=== PATIENT | male | born 1950 | race Caucasian/White ===

== ENCOUNTER → 2016-09-20 | Outpatient (CLI) | payer MEDICARE, BC ==
[~2016-09-20] MED LIST: ATEN25TA PO; ENAL1TAB5 PO; HYDR12.53 PO; IOHEXOL 300 MG/ML 75 ML VIAL IV ONE
--- NOTE | 2016-09-20 09:03 | RAD ---
Indication: Transient ischemic attacks and hypertension. Grayscale, color-flow and duplex Doppler evaluation of bilateral carotid systems was performed. No significant plaquing is identified in either carotid system. The velocities are normal bilaterally. No velocity elevation or stenosis is seen. Both vertebral arteries show antegrade flow. Peak CCA velocity on the right is 92 cm/s and on the left 92 cm/s. Peak ICA velocity on the right is 85 cm/s and on the left 79 cm/s. The ICA to CCA ratio on the right is 0.9 and on the left 0.9. Impression: No evidence of a hemodynamically significant stenosis.
--- NOTE | 2016-09-20 09:38 | RAD ---
Clinical indications: TIA. Hypertension. Technique: Noncontrast axial cross sectional scanning of the head was performed. After IV infusion of 70 cc of Omnipaque 300, repeat axial cross-sectional scanning of the head was performed. PQRS Compliance Statement: One or more of the following individualized dose reduction techniques were utilized for this examination: 1. Automated exposure control 2. Adjustment of the mA and/or kV according to patient size 3. Use of iterative reconstruction technique Findings: No acute intracranial hemorrhage or midline shift or mass-effect or hydrocephalus or extra-axial fluid collection is seen. There are periventricular white matter hypodensities consistent with chronic small vessel ischemic disease in this age group. These areas do not enhance. No sulci effacement is seen. No intracranial contrast enhancing lesion is seen. No opacification of the mastoid sinuses or the middle ear cavities is seen. There is complete opacification of the sphenoid sinuses bilaterally. There is mild mucosal thickening of the left anterior ethmoid sinus. There is severe mucosal thickening of the upper left maxillary sinus which measures 13 mm in thickness. The upper right maxillary sinus appears clear. The upper medial wall of both maxillary sinuses appears to be surgically absent. The maxillary sinuses are not completely seen in this study. Impression: Ijar-jv-kpyirjyy chronic small vessel ischemic disease of the deep white matter of the cerebral hemispheres bilaterally. No acute intracranial hemorrhage. No intracranial contrast enhancing lesion is seen. Bilateral sphenoid sinusitis and left maxillary sinusitis.
== END | disposition home or self-care (01) ==
LOC: CT 08:00
PROVIDERS: ATTEND Family Medicine
DX: G45.9 Transient cerebral ischemic attack, unspecified (principal); J45.909 Unspecified asthma, uncomplicated; Z86.79 Personal history of other diseases of the circulatory system; I10 Essential (primary) hypertension; J32.3 Chronic sphenoidal sinusitis; J32.0 Chronic maxillary sinusitis
CPT/HCPCS: 70470; 93880; Q9967

== ENCOUNTER → 2016-10-18 | Outpatient (CLI) | payer MEDICARE, BC ==
[~2016-10-18] MED LIST changes: -IOHEXOL 300 MG/ML 75 ML VIAL IV ONE
[2016-10-18 09:22] LABS: CHOLESTEROL/HDL RATIO 4.3
--- NOTE | 2016-10-18 11:22 | CARD ---
APPROVED REPORT EXAM: Two-dimensional and M-mode echocardiogram with Doppler and color Doppler. Other Information Quality : Good INDICATION CVA/TIA Echo Enhancing Agent Agent/Amount Used: Agitated Saline 8mL 2D DIMENSIONS Left Atrium(2D)4.1 (1.6-4.0cm)IVSd1.3 (0.7-1.1cm) Aortic Root(2D)3.2 (2.0-3.7cm)LVDd5.3 (3.9-5.9cm) LVOT Diameter2.2 (1.8-2.4cm)PWd1.3 (0.7-1.1cm) LVDs3.3 (2.5-4.0cm)FS (%) 30.0 % SV91.0 mlLVEF(%)60.0 (>50%) Aortic Valve AoV Peak Pepito.117.0cm/sAoV VTI26.0cm AO Peak GR.5.5mmHgLVOT Peak Pepito.110.9cm/s AO Mean GR.3mmHgAVA (VMAX)3.57cm2 LUX (VTI)3.50cm2 Mitral Valve MV E Lzputhwl949.8cm/sMV DECEL DADN506ek MV A Gvntabmh35.1cm/sE/A Ratio1.3 Tricuspid Valve TR P. Pdpjgzur933op/sRAP BNUNHQZQ2yrMz TR Peak Gr.44ikQfALUB64czGj Pulmonary Vein S1 Dzdznzbu53.0cm/sD2 Jhrfhtnt78.6cm/s PVa ommxpmyb060wmdc LEFT VENTRICLE The left ventricle is normal size. There is normal left ventricular wall thickness. The left ventricu lar systolic function is normal and the ejection fraction is within normal range. The Ejection Fracti on is 55-60%. There is normal LV segmental wall motion. Transmitral Doppler flow pattern is Grade I-a bnormal relaxation pattern. RIGHT VENTRICLE The right ventricle is normal size. The right ventricular systolic function is normal. ATRIA The left atrium is mildly dilated. The right atrium size is normal. The interatrial septum is intact with no evidence for an atrial septal defect or patent foramen ovale as noted on 2-D or Doppler imagi ng. Injection of agitated saline documented no interatrial shunt. AORTIC VALVE The aortic not well visualized. Cannot rule out bicuspid valve. Doppler and Color Flow revealed mild aortic regurgitation. There is no significant aortic valvular stenosis. MITRAL VALVE The mitral valve is sclerotic, mildly myxomatous. A mild posterior leaflet mitral valve prolapse is p resent. There is no mitral valve stenosis. Doppler and Color-flow revealed mild mitral regurgitation. TRICUSPID VALVE The tricuspid valve is normal in structure and function. Doppler and Color Flow revealed trace tricus pid regurgitation. The PA pressure was estimated at 35 mmHg. There is no tricuspid valve stenosis. PULMONIC VALVE Doppler and Color Flow revealed mild pulmonic valvular regurgitation. There is no pulmonic valvular s tenosis. GREAT VESSELS The aortic root is normal in size. The ascending aorta is mildly dilated at 3.8 cm. The IVC is normal in size and collapses >50% with inspiration. PERICARDIAL EFFUSION There is no evidence of significant pericardial effusion. Critical Notification Critical Value: No <Conclusion> The left ventricular systolic function is normal and the ejection fraction is within normal range. Th e Ejection Fraction is 55-60%. There is normal LV segmental wall motion. The interatrial septum is intact with no evidence for an atrial septal defect or patent foramen ovale as noted on 2-D or Doppler imaging. Injection of agitated saline documented no interatrial shunt. The aortic not well visualized. Cannot rule out bicuspid valve. Doppler and Color Flow revealed mild aortic regurgitation. The ascending aorta is mildly dilated at 3.8 cm. Consider ANGIE to evaluate for possible bicuspid aortic valve and mildly dilated ascending aorta.
== END | disposition home or self-care (01) ==
LOC: ECHO 07:48
PROVIDERS: ATTEND Nurse Practitioner
DX: I08.3 Combined rheumatic disorders of mitral, aortic and tricuspid valves (principal); I10 Essential (primary) hypertension
CPT/HCPCS: 36415; 80061; C8929

== ENCOUNTER → 2017-11-10 | Outpatient (CLI) | payer MEDICARE, BC ==
[~2017-11-10] MED LIST changes: +IOHEXOL 240 MG/ML 50ML VIAL. PO ONE; +IOHEXOL 300 MG/ML 100ML VIAL. IV ONE
--- NOTE | 2017-11-10 17:28 | RAD ---
CLINICAL HISTORY: RIGHT SIDE NECK MASS, FOLLOWED BY RIGHT SIDE INGUINAL MASS NOTICED ABOUT 3 WEEKS AGO
OMNI 300 75ML, OMNI 240 50ML ORAL, NO PRIORS. COMPARISON: none TECHNIQUE: CT of the neck, chest, abdomen and pelvis following the administration of intravenous contrast. Oral contrast was administered. Coronal and sagittal reformatted images were generated. PQRS compliance statement - One or more of the following individualized dose reduction techniques were utilized for this study: 1. Automated exposure control 2. Adjustment of the mA and/or kV according to patient size 3. Use of iterative reconstruction technique reduction FINDINGS: NECK: Images through the skull base and cavernous sinuses are unremarkable. The orbits are unremarkable. The mastoid air cells are partially opacified in the left, nonspecific. Patchy opacification of the left maxillary sinus and the scattered ethmoid air cells likely sinusitis. The nasopharynx, oral pharynx and oral cavity including the floor of the mouth and tongue are unremarkable. The hypopharynx including the epiglottis, vallecula and pyriform sinuses are unremarkable. The larynx, vocal cords and subglottic airways are unremarkable/patent. The parotid and submandibular glands are unremarkable. The thyroid gland is unremarkable. The carotid arteries and jugular veins are patent. The largest right level 4 lymph nodes and supraclavicular lymph nodes are seen. The right level 4 lymph node measures 3.5 x 3.2 cm with mild leftward mass effect on the trachea. Supraclavicular lymph node measures 4.5 x 3.3 cm. A right level 3 lymph node measures 2.7 x 2 cm. The osseous structures are unremarkable. CHEST: The heart is mildly enlarged. Small pericardial effusion. Enlargement of the left atrium. Diffuse mediastinal and hilar lymphadenopathy. A retail service representative prevascular conglomerate of lymph nodes/mass measures 7.5 x 4.6 cm. This results in severe narrowing of the brachiocephalic veins and SVC. A right hilar lymph node measures 2.6 x 2 cm. A left paratracheal lymph node measures 4.2 x 2.9 cm. No axillary lymphadenopathy. Small hiatal hernia. Distal esophageal thickening likely esophagitis. Trace right pleural effusion. No left pleural effusion. No pneumothorax. Patchy opacities in the bilateral lung bases likely atelectasis. No suspicious lung mass or nodule is definitively identified. ABDOMEN AND PELVIS: No focal liver lesion. Gallbladder is normal. Spleen is unremarkable. No biliary ductal dilatation. Adrenal glands are normal. Pancreas is unremarkable. Symmetric nephrograms. No focal renal lesion. No hydronephrosis. Appendix is normal. Moderate colonic stool content. No small or large bowel dilatation. Oral contrast material seen to the level of the transverse colon. A few prominent periportal and portacaval lymph nodes are seen, not enlarged by size criteria. An aortocaval lymph node is borderline enlarged measuring 1.4 x 1 cm (image 37). Bulky right inguinal lymph nodes are seen, a retail service representative measuring 2.7 x 2.7 cm. No abdominal or pelvic ascites. Calcified splenic artery aneurysm is seen. Atherosclerotic calcifications of aorta are seen. Bilateral L5 pars defects with associated anterolisthesis is seen. Multilevel degenerative changes of the spine are seen. No definite aggressive osseous lesion is seen within the osseous structures. IMPRESSION: 1. Markedly enlarged lymph nodes are seen within the neck, chest and abdominal/pelvis. This is most suspicious for lymphoma. If clinically indicated the right inguinal lymph nodes are amenable to percutaneous ultrasound-guided biopsy. 2. Opacification of the paranasal sinuses may be seen with sinusitis. Nonspecific opacification of the mastoid air cells Electronically signed by: Roosevelt Ramirez MD (11/10/2017 5:24 PM) [facility]
== END | disposition home or self-care (01) ==
LOC: CT 10:25
PROVIDERS: ATTEND Family Medicine
DX: I31.3 Pericardial effusion (noninflammatory) (principal); I70.0 Atherosclerosis of aorta; K44.9 Diaphragmatic hernia without obstruction or gangrene; I72.8 Aneurysm of other specified arteries; R22.1 Localized swelling, mass and lump, neck; I10 Essential (primary) hypertension; J45.909 Unspecified asthma, uncomplicated
CPT/HCPCS: 70491; 71260; 74177; Q9966; Q9967

== ENCOUNTER 2017-12-06 09:22 | Day surgery (SDC) | payer MEDICARE, BC ==
[~2017-12-06 09:22] MED LIST changes: +BUPIVACAINE 0.5% 50 ML VIAL. ONE; +BUPIVACAINE-EPI 0.5%-1:200000 50 ML VIAL. ONE; +CLON0.2T PO; +ENAL20TA PO; +HYDROmorphone 2 MG/ML VIAL IV PRN; -IOHEXOL 240 MG/ML 50ML VIAL. PO ONE; -IOHEXOL 300 MG/ML 100ML VIAL. IV ONE; +IV RINGERS,LACTATED 1000ML 1,000 ML IV SCH; +LIDOCAINE 1% PF 2 ML VIAL. ID PRN; +MORPHINE SULFATE 2 MG/ML VIAL. IV PRN; +NEO/POLYMYX/DEXAMETH OPHTH OINTMENT 3.5GM TUBE. ONE; +ONDANSETRON PF 4 MG/2 ML VIAL. IV PRN; +PHENYLEPHRINE 0.25% NASAL SPRAY 15ML BOTTLE. NS ONE; +PROCHLORPERAZINE 10 MG/2 ML VIAL. IV PRN; +ceFAZolin 2GM PREMIX 2 GM/50 ML BAG IV ONE; +fentaNYL PF VIAL 100 MCG/2 ML VIAL IV PRN
[2017-12-06] MEDS ORDERED: ONDANSETRON PF 4 MG/2 ML VIAL. ONE (10:33)
[2017-12-06] MEDS ORDERED: PROPOFOL 20 ML IV ONE (10:33)
[2017-12-06] MEDS ORDERED: DEXAMETHASONE SOD PHOS 20 MG/5 ML VIAL. ONE (10:33)
[2017-12-06] MEDS ORDERED: SEVOFLURANE 61 TO 120 MINUTES. IH ONE (10:34)
[2017-12-06] MEDS ORDERED: HEPARIN SODIUM 5,000 UNIT in IV NORMAL SALINE 500ML BAG 500 ML IRR ONE (11:15)
--- NOTE | 2017-12-06 12:00 | RAD ---
Single view of the chest. 12/06/2017 12:00 AM Indication: Port-A-Cath placement.. Comparison: CT of the chest November 10, 2017 Findings: There is a left subclavian port with tip in the expected region of the left brachiocephalic vein. No pneumothorax is identified. Abnormal widening of the superior mediastinum is seen consistent with adenopathy demonstrated on prior studies. Mild left basilar atelectasis or scarring is noted. IMPRESSION: 1.Left subclavian port with tip in the expected region of the left brachiocephalic vein. Correlate with port function. 2. Widening of the superior mediastinum consistent with adenopathy is previously demonstrated Electronically signed by: Flo Plummer MD (12/06/2017 11:56 AM) [id number]
--- NOTE | 2017-12-06 12:07 | DISCH ---
DISCHARGE INSTRUCTIONS Condition on Discharge Condition on Discharge: Stable Activity After Discharge Activity Instructions for Disc: Activity as tolerated Lifting Instructions after Dis: No heavy lifting Driving Instructions after Dis: Do not drive today Diet after Discharge Diet after Discharge: Regular Wound Incision Care Wound/Incision Care: Ice to area for comfort Follow-Up Follow up with: Dean next week STEPHAN PINEDA MD Dec 06, 2017 12:07
--- NOTE | 2017-12-06 12:17 | PDOC ---
BRIEF OPERATIVE NOTE Date: Dec 06, 2017 Pre-Op Diagnosis lymphadenopathy Post-Op Diagnosis same Procedure Performed left subclavian power port insertion excisional biopsy right inguinal lymph node Surgeon Dean Anesthesia Type: General Blood Loss 25cc IV Fluid 550cc Specimens Obtained right inguinal lymph node 4x3x2 cm Findings post procedure CXR shows tip of port in SVC without evidence of a pneumothorax Complications none Operative Note Wk # [id number] STEPHAN PINEDA MD Dec 06, 2017 12:17
--- NOTE | 2017-12-06 12:34 | OP ---
DATE OF SURGERY: 12/06/2017 PREOPERATIVE DIAGNOSIS: Lymphadenopathy. POSTOPERATIVE DIAGNOSIS: Lymphadenopathy. PROCEDURE: 1. Left subclavian PowerPort insertion. 2. Excisional biopsy, right inguinal lymph node. SURGEON: Rashaun Pineda MD ANESTHESIA: General LMA. ESTIMATED BLOOD LOSS: 25 mL. INTRAVENOUS FLUIDS: 550 mL. INDICATIONS: The patient is a 67-year-old with weight loss and extensive lymphadenopathy. He is brought for placement of a PowerPort in anticipation of chemotherapy and an excisional biopsy of a lymph node in his right groin. DESCRIPTION OF PROCEDURE: The patient brought to the operating suite, given a general LMA and the left chest was prepped and draped in usual sterile fashion. A 0.25% Marcaine plain was infiltrated a fingerbreadth below the clavicle at the junction of medial two-thirds lateral third. A small incision made and a Cook needle used to cannulate the left subclavian vein. Under fluoroscopic observation a flexible guidewire was advanced in the superior vena cava and the needle was removed. Table returned to level. The pocket incision was infiltrated with 0.25% Marcaine with epinephrine, incised and a pocket developed. Catheter laid on the patient's chest and with fluoroscopy as a guide cut to an appropriate length. The catheter was then tunneled from the insertion site to the pocket site where it was attached to the reservoir. The reservoir was seated into the pocket and with the bed back in Trendelenburg the dilator and sheath were passed over the guidewire. The wire was removed, the dilator was removed and the catheter was threaded through the sheath and the sheath was then removed. Table taken out of Trendelenburg. There was good flow into and out of the catheter. Pocket incision closed with interrupted 3-0 Vicryl, followed by subcuticular 4-0 Monocryl on the skin. Steri-Strips applied. A final aspiration/flush of the port was done. Sterile dressing applied. We then turned our attention to the right groin. It was prepped and draped in usual sterile fashion. A 0.25% Marcaine with epinephrine infiltrated over the palpable node. Incision made and dissection carried down to the enlarged lymph node. This was harvested using the LigaSure to divide attachments. A node was passed off and sent to pathology as a fresh specimen. When hemostasis was present and a correct sponge count obtained, the wound was closed with interrupted inverted 3-0 Vicryl in the subcutaneous tissue, subcuticular 4-0 Monocryl and Steri-Strips for the skin closure. Sterile dressing applied. While sitting in the upright position on the cart in the OR, a chest x-ray was made. This showed the tip of the catheter to reside in superior vena cava without evidence of a pneumothorax. The patient was taken to the postop area in stable condition having tolerated the procedure well. RASHAUN PINEDA MD DR: SMITA/angel JOB#: [id number] / [id number] ARNOLD Miranda MD
[2017-12-06 12:45] VITALS: BP 132/70
[2017-12-08] MEDS ORDERED: LISI-334 PO (03:25)
--- NOTE | 2017-12-11 13:08 | PATHOLOGY ---
[facility] Accession Number: [id number] . 01 Material submitted: . RIGHT INGUINAL NODE . 01 Clinician provided ICD-10: R19.09 . 01 Pre-operative diagnosis: . Inguinal node . 01 Clinical history: . Not provided . 02 Diagnosis: "Right inguinal node", excisional biopsy: - FOLLICULAR LYMPHOMA, HIGH GRADE, GRADE 3A OF 3, PREDOMINANTLY FOLLICULAR PATTERN. - SMALLER SECOND POPULATION OF CD5 AND CD23 POSITIVE MONOCLONAL B CELLS WITH AN IMMUNOPHENOTYPE CONSISTENT WITH CHRONIC LYMPHOCYTIC LEUKEMIA / SMALL LYMPHOCYTIC LYMPHOMA IDENTIFIED BY FLOW CYTOMETRY. - SEE COMMENT. LBQ/12/11/2017 . 02 Comment: Sections show fragments of lymph node with an effaced godfrey architecture. From low power there are back to back follicles of varying sizes. Within the follicles there are large atypical lymphoid cells with moderately condensed to vesicular chromatin and moderate cytoplasm. Scattered mitotic figures are noted. The admixed lymphocytes are predominantly small with round to focally irregular / angulated nuclear contours and condensed chromatin. The small lymphocytes extend through the lymph node capsule and into the adjacent adipose tissue. No abundant single cell necrosis or geographic necrosis is identified. . Due to the inconclusive flow cytometry findings and to identify cells in a tissue architectural context, properly controlled immunohistochemical stains are performed. . Block A1 PAX5 - Stains the neoplastic B cells CD3 - Highlights admixed T cells CD5 - Highlights admixed T cells, no convincing significant B cell co-expression CD10 - Stains the neoplastic B cells and follicles BCL6 - Stains the neoplastic B cells and follicles BCL2 - Stains the neoplastic B cells and follicles CD23 - Highlights residual follicular dendritic cell meshwork and rare small lymphocytes in the adipose tissue Cyclin D1 - Lacks diffuse nuclear staining MUM-1 - Stains scattered large cells within the neoplastic follicles Ki-67 - Proliferative index of approximately 50% primarily within the follicular areas . Cytomorphological examination of an H and E stained touch prep shows a predominantly two cell population. Numerous small mature appearing lymphocytes are noted with admixed larger irregular lymphoid cells. . Flow cytometric immunophenotypic analysis was performed at [facility] The diagnosis is "1 - large population of CD10 positive monoclonal B cells, 2 - small population of CD5 positive monoclonal B cells." The abnormal cells are 35% mostly small B cells positive for CD10, CD19, CD20 and kappa and 6% small B cells positive for CD5, CD19, CD20 (dim), CD23 and lambda. There are 97.8% lymphocytes. Of the lymphocytes, there is 35% kappa restricted CD10 positive B cells, 6% lambda restricted CD5 positive B cells and 55.4% T cells. The T cells have a CD4/CD8 ratio of 3.4 and no aberrant T cell antigen expression. Please see the separate flow cytometry report from [facility]. ([id number]). . Overall, the diagnosis is involvement of the right inguinal lymph node by high grade follicular lymphoma. It is grade 3A of 3 with a predominantly follicular pattern. The second small clonal B cell population with the immunophenotype compatible with chronic lymphocytic leukemia / small lymphocytic lymphoma that was identified by flow cytometry only may represent a concomitant monoclonal B cell lymphocytosis. However, composite lymphoma cannot be entirely excluded. Clinical and radiographic correlation is recommended. The H and E stained slides are co-reviewed with Dr. Dez Dan. The case is discussed with Dr. Brisa Patel on 12/08/17 at approximately 3:20 PM. (CLW/db; 12/07/2017) . 02 Electronically signed: . Ronit Lares MD, Pathologist NPI- [id number] . 01 Gross description: . Received fresh, labeled, "Tomi Mitchell - Right inguinal node" is an enlarged holder lymph node with focally attached small portions of yellow-red perinodal fatty tissue. The lymph node measures 3.7 x 2.7 x 2.5 cm in greatest dimension. Sectioning of the lymph node reveals a holder uniform fleshy cut surface. Two Touch Preparations are prepared and submitted for H and E staining. A portion of the lymph node is submitted in RPMI to [employer] for lymphocyte marker studies by flow cytometry. [employer] sections of the node are submitted for microscopy as A1-A4. (JPM:mml; 12/06/17) JBR/QLM . 02 Pathologist provided ICD-10: C82.25, C91.10 . 02 CPT . 681826, [id number], [id number], [id number] Specimen Comment: A courtesy copy of this report has been sent to Specimen Comment: [phone], . Specimen Comment: Report sent to and Performed at: 01 [facility] [address] [id number] MD Yash Mcginnis MD Phone: [phone] Performed at: 02 [facility] [address] [id number] MD Claude Ortega MD Phone: [phone]
== END 2017-12-06 12:45 | disposition home or self-care (01) ==
LOC: SURG 09:22
PROVIDERS: ATTEND Surgery
DX: Z45.2 Encounter for adjustment and management of vascular access device (principal); C91.10 Chronic lymphocytic leukemia of B-cell type not having achieved remission; J45.909 Unspecified asthma, uncomplicated; I10 Essential (primary) hypertension; Z98.890 Other specified postprocedural states; Z98.42 Cataract extraction status, left eye; Z98.41 Cataract extraction status, right eye; Z96.1 Presence of intraocular lens; Z80.3 Family history of malignant neoplasm of breast; Z80.1 Family history of malignant neoplasm of trachea, bronchus and lung; Z79.899 Other long term (current) drug therapy; Z79.82 Long term (current) use of aspirin
CPT/HCPCS: 36561; 38500; A7015; C1788; J0690; J1100; J1644; J2405; J2704; J3490; J7040; 36556; 71045; 77001; 88184; 88185; 88307; 88341; 88342; 88360

== ENCOUNTER → 2017-12-07 | Outpatient (CLI) | payer MEDICARE, BC ==
[2017-12-06 12:45] VITALS: BP 132/70
[~2017-12-07] VITALS: Ht 180.3 cm; Wt 73.0 kg
[~2017-12-07] MED LIST changes: -BUPIVACAINE 0.5% 50 ML VIAL. ONE; -BUPIVACAINE-EPI 0.5%-1:200000 50 ML VIAL. ONE; +HEPARIN SODIUM 5,000 UNIT in IV NORMAL SALINE 500ML BAG 500 ML IRR ONE; -HYDROmorphone 2 MG/ML VIAL IV PRN; -IV RINGERS,LACTATED 1000ML 1,000 ML IV SCH; -LIDOCAINE 1% PF 2 ML VIAL. ID PRN; +LISI-334 PO; -MORPHINE SULFATE 2 MG/ML VIAL. IV PRN; -NEO/POLYMYX/DEXAMETH OPHTH OINTMENT 3.5GM TUBE. ONE; -ONDANSETRON PF 4 MG/2 ML VIAL. IV PRN; -PHENYLEPHRINE 0.25% NASAL SPRAY 15ML BOTTLE. NS ONE; -PROCHLORPERAZINE 10 MG/2 ML VIAL. IV PRN; -ceFAZolin 2GM PREMIX 2 GM/50 ML BAG IV ONE; -fentaNYL PF VIAL 100 MCG/2 ML VIAL IV PRN
--- NOTE | 2017-12-07 15:34 | RAD ---
FDG tumor localization scan, PET/CT, 12/07/2017: History: Initial staging of lymphoma Following IV injection of 12.5 mCi of 18 F-FDG, imaging was performed from the skull base to the proximal thighs. The noncontrast CT component was performed for attenuation correction and anatomic localization purposes rather than for primary diagnosis. The patient's blood glucose level at the time of injection was 167 MG/DL. Physiologic FDG uptake is seen the upper neck. There is hypermetabolic adenopathy in the right lower neck and right supraclavicular regions. There are markedly enlarged hypermetabolic lymph nodes in the mediastinum. The largest of these lie in the right paratracheal region and right side of the anterior mediastinum. Confluent adenopathy in this region produces a mass measuring approximately 7 x 8 cm. The maximum SUV within this adenopathy is 7-8. The Deauville criteria score is 5. There is mild hypermetabolic adenopathy at the right hilum. A small hypermetabolic node is present in the left axilla. The CT component demonstrates a large left pneumothorax. There is atelectasis/infiltrate in the partially collapsed left lung. These areas of partially collapsed lung demonstrate low level FDG uptake in the 2.5 - 3.0 range, likely due to inflammation. The CT component demonstrates a trace amount of pleural fluid, more so on the right. Normal GI tract and urinary tract activity is present in the abdomen and pelvis. There is moderate hypermetabolic adenopathy at the right groin level. This extends into the right external iliac and obturator regions. Small areas of increased activity in the deep pelvis on the left are probably related to the ureter. Incidental CT findings include the presence of fluid in the left maxillary sinus. A left Port-A-Cath is in place extending into the left innominate vein near its junction with the superior vena cava. The vein is narrowed to that region due to the extensive adenopathy. A trace amount of pericardial fluid is present. There is nonspecific prostatic enlargement. A 2 cm splenic artery aneurysm is noted. IMPRESSION: 1. Extensive hypermetabolic mediastinal, hilar and right lower neck adenopathy. 2. Moderate right inguinal and pelvic adenopathy. 3. Mild left axillary adenopathy. 4. Large left pneumothorax. 5. Atelectasis and infiltrate in the partially collapsed left lung demonstrates mildly increased FDG uptake compatible with nonspecific inflammation. Note: The findings were called to Dr. Patel's nurse at 3:30 PM on 12/07/2017.
== END | disposition home or self-care (01) ==
LOC: PETSC 11:36
PROVIDERS: ATTEND Internal Medicine Hematology & Oncology
DX: C81.90 Hodgkin lymphoma, unspecified, unspecified site (principal); C83.7 Burkitt lymphoma; J98.11 Atelectasis; I72.8 Aneurysm of other specified arteries; J93.9 Pneumothorax, unspecified; I10 Essential (primary) hypertension; N40.0 Benign prostatic hyperplasia without lower urinary tract symptoms; J45.909 Unspecified asthma, uncomplicated; R91.8 Other nonspecific abnormal finding of lung field; R59.0 Localized enlarged lymph nodes; Z79.899 Other long term (current) drug therapy; Z86.79 Personal history of other diseases of the circulatory system; Z87.891 Personal history of nicotine dependence
CPT/HCPCS: 78815; A9552

== ENCOUNTER → 2018-01-25 | Outpatient (CLI) | payer MEDICARE, BC ==
[2017-12-09 10:30] VITALS: BP 193/86
[~2018-01-25] MED LIST changes: -HEPARIN SODIUM 5,000 UNIT in IV NORMAL SALINE 500ML BAG 500 ML IRR ONE
--- NOTE | 2018-01-25 13:45 | RAD ---
FDG tumor localization scan, PET/CT, 01/25/2018: History: Lymphoma Following IV injection of 13 mCi of 18 F-FDG, imaging was performed from the skull base to the proximal thighs. The noncontrast CT component was performed for attenuation correction and anatomic localization purposes rather than for primary diagnosis. The patient's blood glucose level at the time of injection was 120 MG/DL. Comparison is made to a study from 12/07/2017. Hypermetabolic adenopathy previously seen in the right lower neck and mediastinum has regressed. For example a left upper mediastinal node which measured 4.4 x 3.6 cm on the previous study now measures 3.3 x 1.9 cm. The large area of confluent adenopathy in the right paratracheal region and anterior mediastinum on the right has also regressed. FDG uptake in these regions is now similar to that of the mediastinal background. The findings suggest a Deauville criteria score of 2. A mildly enlarged left axillary lymph node seen on the previous study has decreased in size. The CT component demonstrates scattered linear opacities in the lungs. There appears to be chronic atelectasis in the right middle lobe. There is low level FDG uptake in the collapsed right middle lobe compatible with inflammation. Faint tree-in-bud type opacities are present laterally in the right upper lobe. There is mild patchy infiltrate in the left lower lobe. No avid FDG uptake is seen in these regions. The previously seen pneumothorax has resolved. Normal GI tract and urinary tract activity is present in the abdomen and pelvis. Previously seen right inguinal and external iliac adenopathy has regressed. For example a right inguinal node which measured 2.7 cm on the previous study now measures 1.4 cm with only faint FDG uptake with a maximum SUV of 2.0. No new hypermetabolic adenopathy is evident. Incidental CT findings include the presence of mucosal thickening and probable fluid in the left maxillary sinus. A left Port-A-Cath extends into the left innominate vein near its junction with the superior vena cava. A small splenic artery aneurysm is present. There is nonspecific prostatic enlargement. IMPRESSION: 1. Favorable response to therapy with interval decrease in size of the chest, neck and right inguinal/pelvic adenopathy and resolution of the hypermetabolic activity within these lymph nodes. 2. Chronic right middle lobe atelectasis with mild patchy pulmonary infiltrates which are likely inflammatory.
== END | disposition home or self-care (01) ==
LOC: PETSC 09:39
PROVIDERS: ATTEND Internal Medicine Hematology & Oncology
DX: C85.98 Non-Hodgkin lymphoma, unspecified, lymph nodes of multiple sites (principal); C82.38 Follicular lymphoma grade IIIa, lymph nodes of multiple sites; J98.11 Atelectasis; R91.8 Other nonspecific abnormal finding of lung field
CPT/HCPCS: 78815; A9552

== ENCOUNTER → 2018-04-19 | Outpatient (CLI) | payer MEDICARE, BC ==
[2017-12-09 10:30] VITALS: BP 193/86
[~2018-04-19] MED LIST changes: -HYDR12.53 PO; +HYDR12.575 PO
--- NOTE | 2018-04-19 11:29 | RAD ---
FDG tumor localization scan, PET/CT, 04/19/2018: History: Follow-up Hodgkin's lymphoma Following IV injection of 14.0 mCi of 18 F-FDG, imaging was performed from the skull base to the proximal thighs. The noncontrast CT component was performed for attenuation correction and anatomic localization purposes rather than for primary diagnoses. The patient's blood glucose level time of injection was 92 MG/DL. Comparison is made to a study from 01/25/2018. There has been further interval decrease in size of the right lower neck and mediastinal adenopathy. For example the left upper mediastinal lymph node which measured 33 x 19 mm on the 01/25/2018 study now measures 28 x 16 mm. The right peritracheal adenopathy has also regressed. The degree of FDG uptake in these residual mediastinal nodes is similar to that of the mediastinal background. The CT component again demonstrates scattered parenchymal opacities in the lungs. There is chronic atelectasis in the right middle lobe. There are faint tree-in-bud type opacities laterally in the right lung. Similar findings were present on the previous study. No hypermetabolic pulmonary process is seen. Normal GI tract and urinary tract activity is present in the abdomen and pelvis. No hypermetabolic intra-abdominal process is seen. There is a small focus of increased activity again noted in the umbilical region, likely on an inflammatory basis. A residual right inguinal lymph node which measured 14 mm in diameter on the previous study now measures 12 mm. It is not hypermetabolic. No hypermetabolic iliac or inguinal adenopathy is seen. There is unchanged increased activity in the right neck which appears to be related to a facet joint, presumably arthritic in nature. Soft tissue thickening and probable fluid persists in the left maxillary sinus with soft tissue thickening extending in the left nasal cavity. The findings are likely on an inflammatory basis. IMPRESSION: 1. Further interval decrease in size of right lower neck, mediastinal and right inguinal lymph nodes. The mediastinal lymph nodes demonstrate only low level FDG uptake similar to that of the mediastinum, producing a Deauville criteria score of 2. 2. No new FDG-PET abnormality is detected.
== END | disposition home or self-care (01) ==
LOC: PETSC 08:56
PROVIDERS: ATTEND Internal Medicine Hematology & Oncology
DX: C81.71 Other Hodgkin lymphoma, lymph nodes of head, face, and neck (principal); J98.11 Atelectasis; R59.0 Localized enlarged lymph nodes
CPT/HCPCS: 78815; A9552